=== PATIENT | male | born 1975 | race Caucasian/White ===

== ENCOUNTER 2019-08-19 18:01 | Emergency (ER) | payer MEDICAID, SELFPAY ==
[2019-08-19 18:25] VITALS: BP 140/96; PULSE 115; RESP 18; TEMP 36.8; O2SAT 100; BMI 31.9
--- NOTE | 2019-08-19 18:28 | HMH.EDUTC ---
[facility] [place] Clinical Impression: Exposure to STD, Genital warts Disposition: Home, Self-Care Condition on Discharge: Good Instructions: Trichomoniasis, DI for Trichomoniasis Additional Instructions: Drink plenty of fluids. Take the medications as directed. Follow up with your regular doctor. GO TO THE ER FOR ANY WORSENING SYMPTOMS Follow up with urology. I put in a referral, but you need to call and schedule yourself an appointment. Prescriptions: metroNIDAZOLE [Flagyl 500mg Tablet] 2,000 mg PO ONCE #1 tab Transmission Status: Received by [facility] Referrals: Provider,MD Danna [Primary Care Provider] - Brian Argueta MD [Staff Physician] - Time of Disposition: 18:32 Medical Decision Making - Medical Records Medical records reviewed: No: I reviewed the patient's medical records. - Davy Inquiry Pt receiving controlled substance: No Vital Signs: 08/19/19 18:25 08/19/19 18:42 Temperature 98.2 F 98.2 F Temperature Source Oral Oral Pulse Rate 115 H Pulse Rate [Right Brachial] 115 H Respiratory Rate 18 18 Blood Pressure 140/96 H Blood Pressure [Right Arm] 140/96 H Blood Pressure Mean [Right Arm] 110 Blood Pressure Source Automatic Cuff Blood Pressure Source [Right Arm] Automatic Cuff Blood Pressure Position Sitting Blood Pressure Position [Right Arm] Sitting 02 Sat by Pulse Oximetry 100 Oxygen Delivery Method Room Air Room Air - Lab Data Lab Results 08/19/19 18:31: Urine Color Citrus, Urine Appearance Cloudy, Urine pH 5.5, Ur Specific [place] 1.030, Urine Protein 1+, Urine Glucose (UA) Negative, Urine Ketones Negative, Urine Blood Negative, Urine Nitrate Negative, Urine Bilirubin 1+ A, Urine Urobilinogen 0.2, Ur Leukocyte Esterase Negative Orders (Tests/Meds): ORDERS Category Date Time Status Urine Culture Stat Micro 08/19/19 18:34 Results [facility] [place] - General Stated complaint: private issues Time Seen by Provider: 08/19/19 18:28 - History of Present Illness Provider Complaint: He believes that he has been exposed to trichamonas. And he believes he is getting genital warts. He would like to be treated for the trich and referred to a urologist. - Related Data Previous Rx's Medication Instructions Recorded metroNIDAZOLE [Flagyl 500mg 2,000 mg PO ONCE #1 tab 08/19/19 Tablet] Allergies Allergy/AdvReac Type Severity Reaction Status Date / Time codeine [CODEINE] Allergy Intermediate Verified 03/25/19 17:02 [facility] History - Hepatitis A Screen Attestation statement:: This patient has been screened for Hepatitis A risk factors. I have reviewed the patient's past medical history: Yes - Social History Smoking Status: Current every day smoker Tobacco Type: cigarettes # Packs/Day (cigarettes): 1 Alcohol Intake: never Substance Use Type: marijuana, methamphetamine, other Occupational Status: unemployed ROS Obtained: Yes All systems reviewed & no additional complaints - Constitutional Constitutional: Denies chills, Denies fever(s) - Respiratory Respiratory: No chest congestion, No cough - Genitourinary Male Genitourinary: Denies difficulty urinating - Musculoskeletal Musculoskeletal: Denies back pain Physical Exam - General General appearance: alert, in no apparent distress - Head Head exam: atraumatic, normocephalic, normal inspection - Eye Eye exam: Present: normal appearance, PERRL, EOMI - ENT ENT exam: Present: normal exam, normal oropharynx, mucous membranes moist, TM's normal bilaterally, normal external ear exam - Neck Neck exam: Present: normal inspection, full ROM, trachea midline. Absent: meningismus, lymphadenopathy - Chest Chest inspection: Present: normal inspection, symmetric chest wall rise. Absent: tenderness - Respiratory Respiratory exam: Present: normal lung sounds bilaterally. Absent: respiratory distress - Cardiovascular Cardiovascular exam: Present: regular r
[2019-08-19 18:37] LABS: Apearance,Urine Cloudy (Clear); Bilirubin,Urine 1+ (Negative); Blood, Urine Negative (Negative); Color,Urine Orange (Yellow); Glucose,Urine (UA) Negative (Negative); Ketones,Urine Negative (Negative); PH,Urine 5.5 (5.0-8.5); Protein,Urine 1+ (Negative); UTC Leukocyte Esterase,Urine Negative (Negative); UTC Nitrate,Urine Negative (Negative); Urobilinogen,Urine 0.2 EU/dl (0.2)
[2019-08-19 18:42] VITALS: BP 140/96; PULSE 115; RESP 18; TEMP 36.8; O2SAT 100
[2019-08-22 10:28] LABS: Neisseria gonorrhoeae, NAA Negative (Negative)
== END 2019-08-19 18:43 | disposition home or self-care (01) ==
PROVIDERS: Emergency Provider Nurse Practitioner Family
DX: Z20.2 Contact with and (suspected) exposure to infections with a predominantly sexual mode of transmission (principal); F17.210 Nicotine dependence, cigarettes, uncomplicated; Z88.6 Allergy status to analgesic agent
CPT/HCPCS: 81003; 87086; 87491; 87591; 99201

== ENCOUNTER → 2021-05-18 13:40 | Outpatient (CLI) | payer MEDICAID, SELFPAY | PROVIDERS: Visit Provider Nurse Practitioner | DX: U07.1 COVID-19 (principal) | CPT/HCPCS: C9803; U0003; U0005 ==

== ENCOUNTER 2021-06-12 08:13 | Emergency (ER) | payer MEDICAID, SELFPAY ==
[2021-06-12 08:13] VITALS: BP 124/106; PULSE 86; RESP 18; TEMP 36.8; O2SAT 99; BMI 23.6
[2021-06-12 08:21] VITALS: BP 124/106; PULSE 91; O2SAT 97
[2021-06-12 08:27] VITALS: BP 153/102; PULSE 88; O2SAT 98
[2021-06-12 08:30] VITALS: BP 148/88; PULSE 89; O2SAT 97
--- NOTE | 2021-06-12 08:37 | HMH.EDGENADL ---
ED Disposition Clinical Impression: Puncture wound of plantar aspect of foot Qualifiers: Encounter type: initial encounter Laterality: right Qualified Code(s): S91.331A - Puncture wound without foreign body, right foot, initial encounter Disposition: Home, Self-Care Condition on Discharge: Good Instructions: DI for Puncture Wound Additional Instructions: Clean wound with soap and water daily. Return to the emergency department if increasing pain, or development of redness, red streaks, fever, or pus drainage. Referrals: Provider,Referral, [Primary Care Provider] - - Critical Care Critical Care Time: No Attestation: On 06/12/21, the high probability of a clinically significant, sudden or life threatening deterioration of the following system(s) required my full and direct attention, intervention and personal management. The time I documented below is in addition to time spent performing reported procedures but includes the following listed in this critical care notation. Medical Decision Making - Davy Inquiry Pt receiving controlled substance: No Vital Signs: 06/12/21 08:13 06/12/21 08:21 06/12/21 08:27 Temperature 98.2 F Temperature Source Oral Pulse Rate 91 H 88 Pulse Rate [Right Radial] 86 Respiratory Rate 18 Blood Pressure 124/106 H 153/102 H Blood Pressure [Right Arm] 124/106 H Blood Pressure Mean [Right Arm] 112 Blood Pressure Source [Right Arm] Automatic Cuff Blood Pressure Position [Right Arm] Sitting 02 Sat by Pulse Oximetry 99 97 98 Oxygen Delivery Method Room Air Room Air Room Air 06/12/21 08:30 Temperature Temperature Source Pulse Rate 89 Pulse Rate [Right Radial] Respiratory Rate Blood Pressure 148/88 H Blood Pressure [Right Arm] Blood Pressure Mean [Right Arm] Blood Pressure Source [Right Arm] Blood Pressure Position [Right Arm] 02 Sat by Pulse Oximetry 97 Oxygen Delivery Method Room Air Orders (Tests/Meds): ED MEDICATIONS Discontinued Medications Generic Name Dose Route Start Last Admin Trade Name Freq PRN Reason Stop Dose Admin Tetanus/Diphtheria Toxoids 0.5 ml 06/12/21 08:29 06/12/21 08:39 Tetanus-Diphth Toxoid, Adult 0.5ml Syr IM 06/12/21 08:30 0.5 ml .ONCE ONE Administration Medical Decision Narrative: No suspicion of foreign body. Patient just requests a tetanus shot. General Adult HPI - General Chief complaint: Wound/Laceration Stated complaint: piece of wire thru foot Time Seen by Provider: 06/12/21 08:37 Mode of Arrival: Ambulatory Limitations: No Limitations Description of Symptoms (Recalled from ER Triage Doc. by RN): Pt states that he stepped on a piece of fencing wire yesterday and it went through the bottom of his tennis shoe, punturing his rt foot. Pt denies pain. States that he is not up to date on Tetanus vaccine. - History of Present Illness HPI narrative: States that he stepped on a piece of fencing wire yesterday and it went through his boot into his right foot. He is not sure where punctured his foot, somewhere in the forefoot and says it is sore to walk on. He says that he needs a tetanus shot, it has been greater than 10 years. He says he knows that it did not break anything and nothing broke off and there , just needs a tetanus shot. States he soaked it in Epsom salts and cleaned it, I have been through this before . States that every time he has had to get a tetanus shot is because he is stepped on a nail in the past. - Related Data Previous Rx's Medication Instructions Recorded metroNIDAZOLE [Flagyl 500mg 2,000 mg PO ONCE #1 tab 08/19/19 Tablet] Allergies Allergy/AdvReac Type Severity Reaction Status Date / Time codeine [CODEINE] Allergy Intermediate Verified 03/25/19 17:02 [facility] History - Hepatitis A Screen Drug use history?: No High risk sexual behaviors?: No History of sexually transmitted infection?: No Currently employed?: No Childcare worker?: No Do
[2021-06-12 08:51] VITALS: BP 148/88; PULSE 89; RESP 16; TEMP 36.9; O2SAT 98
== END 2021-06-12 08:53 | disposition home or self-care (01) ==
PROVIDERS: Emergency Provider Emergency Medicine
DX: S91.331A Puncture wound without foreign body, right foot, initial encounter (principal); W22.8XXA Striking against or struck by other objects, initial encounter; Y92.89 Other specified places as the place of occurrence of the external cause; Z23 Encounter for immunization
CPT/HCPCS: 90471; 90714; 99281

== ENCOUNTER 2021-10-16 21:43 | Emergency (ER) | payer MEDICAID, SELFPAY ==
[2021-10-16 21:33] VITALS: BP 123/84; PULSE 91; RESP 16; TEMP 36.6; O2SAT 98; BMI 22.8
[2021-10-16 22:52] LABS: Basophils # 0.2 K/mm3 (0-0.2); Basophils % 1.7 % (0.1-2.0); Eosinophils # 0.1 K/mm3 (0.0-0.4); Eosinophils % 1.5 % (0.1-12.0); Hematocrit 38.2 % (42.0-52.0); Hemoglobin 13.1 g/dL (14.1-18.0); Lymphocytes # 2.6 K/mm3 (0.7-4.5); Lymphocytes % 26.7 % (10-50); Mean Corpuscular HGB Conc 34.2 g/dL (31.8-35.4); Mean Corpuscular Hemoglobin 31.6 pg (27.0-31.2); Mean Corpuscular Volume 92.2 fl (80-94); Mean Platelet Volume 9.2 fl (7.4-10.4); Monocytes # 0.7 K/mm3 (0.1-1.0); Monocytes % 7.2 % (1.7-9.3); Neutrophils # 6.1 K/mm3 (1.8-7.8); Platelet Count 261 K/mm3 (142-424); Red Blood Count 4.15 M/mm3 (4.60-6.20); Red Cell Distribution Width 13.1 % (11.5-17.5); White Blood Count 9.6 K/mm3 (4.8-10.8)
--- NOTE | 2021-10-16 22:54 | HMH.EDMCLR ---
ED Disposition Clinical Impression: Medical clearance for incarceration, Amphetamine abuse Disposition: Home, Self-Care Condition on Discharge: Good Instructions: DI for Substance Use Disorder Additional Instructions: see pcp for follow up Referrals: Provider,Referral, [Primary Care Provider] - - Critical Care Critical Care Time: No Attestation: On 10/16/21, the high probability of a clinically significant, sudden or life threatening deterioration of the following system(s) required my full and direct attention, intervention and personal management. The time I documented below is in addition to time spent performing reported procedures but includes the following listed in this critical care notation. Medical Decision Making - Medical Records Medical records reviewed: Yes: I reviewed the patient's medical records. - Davy Inquiry Pt receiving controlled substance: No Vital Signs: 10/16/21 21:33 Temperature 97.8 F Temperature Source Oral Pulse Rate [Left] 91 H Respiratory Rate 16 Blood Pressure [Right Arm] 123/84 Blood Pressure Mean [Right Arm] 97 02 Sat by Pulse Oximetry 98 Oxygen Delivery Method Room Air - Lab Data Lab results reviewed: Yes: I reviewed the patient's lab results. Lab Results 10/16/21 21:45: WBC 9.6, RBC 4.15 L, Hgb 13.1 L, Hct 38.2 L, MCV 92.2, MCH 31.6 H, MCHC 34.2, RDW 13.1, Plt Count 261, MPV 9.2, Neut % (Auto) 63.0, Lymph % (Auto) 26.7, [place] % (Auto) 7.2, Eos % (Auto) 1.5, Baso % (Auto) 1.7, Neut # (Auto) 6.1, Lymph # (Auto) 2.6, [place] # (Auto) 0.7, Eos # (Auto) 0.1, Baso # (Auto) 0.2 10/16/21 21:45: Sodium 140, Potassium 3.9, Chloride 107, Carbon Dioxide 24, Anion Gap 12.9, BUN 31 H, Creatinine 1.80 H, Estimated Creat Clear 55, Estimated GFR 41 L, Est GFR ( Amer) 49 L, Glucose 92, Calcium 9.1, Total Bilirubin 0.3, AST 46, ALT 22, Alkaline Phosphatase 100, Total Protein 7.3, Albumin 4.0, Globulin 3.3 H, Albumin/Globulin Ratio 1.2 10/16/21 23:20: Urine Color Yellow, Urine Appearance Clear, Urine pH 5.5, Ur Specific [place] >= 1.030, Urine Protein Trace, Urine Glucose (UA) Negative, Urine Ketones Negative, Urine Blood Negative, Urine Nitrate Negative, Urine Bilirubin Negative, Urine Urobilinogen 0.2, Ur Leukocyte Esterase Negative, Urine WBC 5-10, Ur Squamous Epith Cells Occasional, Ur Renal Epithelial Cell Occasional, Amorphous Sediment Trace, Urine Mucus 4+ 10/16/21 23:20: Urine Opiates Screen Negative, Urine Methadone Screen Negative, Ur Barbituates Screen Negative, Ur Phencyclidine Scrn Negative, Ur Amphetamines Screen Positive H, U Benzodiazepines Scrn Negative, Urine Cocaine Screen Negative, U Marijuana (THC) Screen Positive H Result diagrams: 10/16/21 21:45 10/16/21 21:45 Orders (Tests/Meds): ED MEDICATIONS Generic Name Dose Route Start Last Admin Trade Name Freq PRN Reason Stop Dose Admin Sodium Chloride 1,000 mls @ 999 mls/hr 10/16/21 22:45 10/16/21 22:42 Sod Chlor 0.9% 1000ml Bag IV 10/16/21 23:45 999 mls/hr .Q1H1M CHIDI Administration Sodium Chloride 10 ml 10/16/21 22:41 Sodium Chloride 0.9% 10ml Flush Syringe IV 11/15/21 22:40 NEEDED PRN Maintain IV Site Medical Clearance HPI - General Chief complaint: Overdose Stated complaint: OD Time Seen by Provider: 10/16/21 22:54 Mode of Arrival: EMS Source of Information: Patient, EMS, Medical Record Limitations: No Limitations Description of Symptoms (Recalled from ER Triage Doc. by RN): pt found passed out in the truck pt stated he smoked week and is bipolar pt states to have had meth 3 days ago but none today - History of Present Illness HPI Narrative: hx of snorting meth - he reports last episode 3 days ago - reports has anxiety MD complaint: medical clearance requested Onset (ago): day(s) Reason for Medical Clearance: other (drug use ) Alleged Intoxication: Yes Traumatic Symptoms: denies traumatic injury Associated Symptoms: denies other symptoms Treatments Prior to A
[2021-10-16 22:58] LABS: Alanine Aminotransferase 22 U/L (12-78); Albumin/Globulin Ratio 1.2 (1.1-1.8); Alkaline Phosphatase 100 U/L (38-126); Anion Gap 12.9 mEq/L (5-15); Aspartate Amino Transferase 46 U/L (17-59); Bilirubin,Total 0.3 mg/dl (0.2-1.3); Blood Urea Nitrogen 31 mg/dl (9-20); Calcium 9.1 mg/dl (8.4-10.2); Carbon Dioxide 24 mmol/L (22.0-30.0); Chloride 107 mmol/L (98-107); Creatinine Clearance Estimated 55 mL/min (50-200); Estimated Glomerular Filt Rate 41 ml/min (>60); GFR (African American) 49 ML/MIN (>60); Globulin 3.3 g/dL (1.3-3.2); Glucose 92 mg/dl (74-100); Potassium 3.9 mmoL/L (3.5-5.1); Sodium 140 mmol/L (136-145); Total Protein,Serum 7.3 g/dl (6.3-8.2)
[2021-10-16 23:22] LABS: Microscopic, Urine URINE MICROSCOPIC (MICROSCOPIC)
[2021-10-16 23:23] LABS: Appearance,Urine CLEAR (Clear); Bilirubin,Urine Negative (Negative); Blood, Urine Negative (Negative); Color,Urine YELLOW (Yellow); Glucose,Urine (UA) Negative (Negative); Ketones,Urine Negative (Negative); Leukocyte Esterase,Urine Negative (Negative); Nitrate,Urine Negative (Negative); PH,Urine 5.5 (5.0-8.5); Protein,Urine TRACE (Negative); Specific Gravity, Urine >= 1.030 (1.005-1.030); Urobilinogen,Urine 0.2 EU/dl (0.2)
[2021-10-16 23:28] LABS: Renal Epithelial Cells,Urine Occasional #/lpf (0); Squamous Epithelial Cell,Urine Occasional #/hpf (0-5)
[2021-10-16 23:29] LABS: Amorphous Sediment,Urine Trace /lpf; Mucus,Urine 4+ /lpf
[2021-10-16 23:35] LABS: Barbiturates Screen,Urine Negative ng/ml (<200); Benzodiazepines Screen,Urine Negative ng/ml (<200)
[2021-10-16 23:36] LABS: Cannabinoid Screen,Urine Positive ng/ml (<50)
[2021-10-16 23:37] LABS: Cocaine Screen,Urine Negative ng/ml (<300)
[2021-10-16 23:38] LABS: Methadone Screen,Urine Negative ng/ml (<300); Opiate Screen,Urine Negative ng/ml (<300)
[2021-10-16 23:39] LABS: Phencyclidine Screen,Urine Negative ng/ml (<25)
[2021-10-16 23:48] LABS: Amphetamine/Metha Screen,Urine Positive ng/ml (<1000)
[2021-10-17 00:36] VITALS: BP 123/84; PULSE 89; RESP 18; TEMP 36.9; O2SAT 99
== END 2021-10-17 00:41 | disposition home or self-care (01) ==
PROVIDERS: Emergency Provider Emergency Medicine
DX: T43.621A Poisoning by amphetamines, accidental (unintentional), initial encounter (principal); R21 Rash and other nonspecific skin eruption; F41.9 Anxiety disorder, unspecified; F17.210 Nicotine dependence, cigarettes, uncomplicated; Z88.5 Allergy status to narcotic agent
CPT/HCPCS: 80053; 80305; 81001; 85025; 96360; 99284

== ENCOUNTER 2023-03-28 08:59 | Emergency (ER) | payer SELFPAY ==
[2023-03-28] VITALS (11 sets, daily range): BP systolic 90–124; BP diastolic 42–78; PULSE 64–84; RESP 16–20; TEMP 36.4–36.7; O2SAT 95–99; BMI 30.4
--- NOTE | 2023-03-28 09:03 | HMH.EDGENADL ---
Discharge Plan Disposition Patient Disposition: Home, Self-Care Chief Complaint: Overdose Prescriptions Prescriptions: No Action metronidazole 500 MG tablet 2,000 mg PO ONCE Qty: 1 0RF Referrals Follow up/Referrals: Low Fernandez DO [Primary Care Provider] - See instructions Activity Restrictions/Add. Instructions Additional Instructions/Restrictions: Please follow-up with your primary care provider and with psychiatric resources. Please return to the emergency department if you develop any new or worsening symptoms or become concerned for your health. Clinical Impressions Clinical Impression: Delirium Overdose Qualifiers: Encounter type: initial encounter Injury intent: undetermined intent Qualified Code(s): T50.904A - Poisoning by unspecified drugs, medicaments and biological substances, undetermined, initial encounter Discharge ED Provider: Doron Philippe Adult HPI <Doron Philippe MD - Last Filed: 03/28/23 17:11> General Chief complaint: Overdose Stated complaint: OD Time Seen by Provider: 03/28/23 09:02 History of Present Illness HPI narrative: The patient presents with a chief complaint of recent loss of her and possible overdose. She reports that her son found her unresponsive at 3 AM, and he was high on the kite. The patient states that her seemed fine when she went to bed the previous night. She was given a five-day supply of Naloxone by EMS. The patient is experiencing a new symptom of soreness in her neck. She denies having any fevers or chills. The patient has a past medical history of bipolar disorder but is not currently taking any medications for it. She admits to a possible overdose but denies using any recreational drugs this morning. The patient denies having any thoughts of hurting herself or others and does not believe that her actions this morning were an attempt to harm herself. The patient also mentions that her had expressed suicidal thoughts to his brother before his . There is no specific event or injury reported that may have triggered the neck soreness. No specific activities or positions have been identified that exacerbate or alleviate the pain. Related Data Previous Rx's Medication Instructions Recorded metronidazole 500 mg tablet 2,000 mg PO ONCE #1 tab 08/19/19 Allergies Allergy/AdvReac Type Severity Reaction Status Date / Time codeine [CODEINE] Allergy Intermediate Verified 03/25/19 17:02 [facility] <Doron Philippe MD - Last Filed: 03/28/23 17:11> [facility] Disclaimer: The information contained in this section may have been updated after the patient was seen, as this information can be updated by other users. Social History Smoking Status: Current every day smoker tobacco type: cigarettes packs per day: 1 alcohol intake: never substance use type: marijuana, methamphetamine and other current occupational status: other Travel in the last 8 weeks: None <Doron Philippe MD - Last Filed: 03/28/23 17:11> ROS Obtained: Yes Systems reviewed as appropriate & no additional complaints except as documented As per HPI Physical Exam <Doron Philippe MD - Last Filed: 03/28/23 17:11> General General appearance: alert and lethargic Head Head exam: atraumatic and normocephalic Eye Eye exam: Present normal appearance Neck Neck exam: Present normal inspection Chest Chest inspection: Present normal inspection and symmetric chest wall rise Respiratory Respiratory exam: Present normal lung sounds bilaterally; Absent respiratory distress Cardiovascular Cardiovascular exam: Present regular rate and normal rhythm Abdominal Exam Abdominal exam: Present soft Neurological Exam Neurological exam: Present alert and oriented X3 Psychiatric Psychiatric exam: Present normal affect and normal mood Expanded Psychiatric Exam Expanded psych exam: Present refuses to answer Skin Skin exam: Present warm and dry Medical Decision Making <Noe
--- NOTE | 2023-03-28 09:19 | PC.NURSE ---
pts clothes were soiled upon arrival; Jacey Garcia RN and I changed patient into a clean gown, and gave him warm blankets for comfort.
--- NOTE | 2023-03-28 10:04 | PC.NURSE ---
patient given a pillow for comfort, call anthony within reach
[2023-03-28 10:08] LABS: Basophils % 0.3 % (0.1-2.0); Eosinophils # 0.1 K/mm3 (0.0-0.4); Eosinophils % 0.5 % (0.1-12.0); Hematocrit 42.1 % (42.0-52.0); Hemoglobin 13.7 g/dL (14.1-18.0); Lymphocytes # 0.5 K/mm3 (0.7-4.5); Lymphocytes % 4.9 % (10-50); Mean Corpuscular HGB Conc 32.5 g/dL (31.8-35.4); Mean Corpuscular Hemoglobin 30.9 pg (27.0-31.2); Mean Platelet Volume 8.3 fl (7.4-10.4); Monocytes # 0.2 K/mm3 (0.1-1.0); Monocytes % 1.8 % (1.7-9.3); Neutrophils # 9.5 K/mm3 (1.8-7.8); Neutrophils % 92.5 % (37.0-80.0); Platelet Count 200 K/mm3 (142-424); Red Blood Count 4.44 M/mm3 (4.60-6.20); Red Cell Distribution Width 13.3 % (11.5-17.5); White Blood Count 10.2 K/mm3 (4.8-10.8)
[2023-03-28 10:09] LABS: Albumin Level 4.3 g/dl (3.5-5.0); Albumin/Globulin Ratio 1.4 (1.1-1.8); Alkaline Phosphatase 106 U/L (38-126); Bilirubin,Total 0.6 mg/dl (0.2-1.3); Chloride 98 mmol/L (98-107); Total Protein,Serum 7.3 g/dl (6.3-8.2)
[2023-03-28 10:10] LABS: MANUAL DIFFERENTIAL MANUAL DIFFERENTIAL (MANUAL DIFF)
--- NOTE | 2023-03-28 10:17 | ECG_ITS ---
APPROVED REPORT Exam: Resting ECG HR:75 bpm ECG Measurements Heart Rate 75 AXES VA 141 P 75 QRSd 90 QRS 58 QT 405 T 73 QTc 434 Conclusion SINUS RHYTHM NORMAL ECG UNCONFIRMED REPORT Electronically signed by : Krzysztof Koch MD 03/29/2023 18:27:08
[2023-03-28 10:20] LABS: Ethyl Alcohol < 10 mg/dl (0-10)
[2023-03-28 10:21] LABS: Amphetamine/Metha Screen,Urine Positive ng/ml (<1000); Barbiturates Screen,Urine Negative ng/ml (<200); Benzodiazepines Screen,Urine Negative ng/ml (<200); Cannabinoid Screen,Urine Negative ng/ml (<50); Cocaine Screen,Urine Negative ng/ml (<300); Methadone Screen,Urine Negative ng/ml (<300); Opiate Screen,Urine Negative ng/ml (<300); Phencyclidine Screen,Urine Negative ng/ml (<25)
[2023-03-28 10:22] LABS: Acetaminophen < 10 ug/ml (10-30); Alanine Aminotransferase 63 U/L (12-78); Aspartate Amino Transferase 114 U/L (17-59); Blood Urea Nitrogen 48 mg/dl (9-20); Calcium 8.2 mg/dl (8.4-10.2); Carbon Dioxide 19 mmol/L (22.0-30.0); Creatinine Clearance Estimated 82 mL/min (50-200); Estimated Glomerular Filt Rate 54 ml/min (>60); GFR (African American) 65 ML/MIN (>60); Glucose 129 mg/dl (74-100); Salicylate < 1.0 mg/dL (2.0-20.0)
[2023-03-28 10:29] LABS: Eosinophils % 1 % (0-3); Lymphocytes % 5 % (10-50); Monocytes % 1 % (2-9); Neutrophils % 93 % (42-76); Platelet Estimate Normal; RBC Morphology Normal; Total Cells Counted 100
[2023-03-28 10:40] LABS: Thyroid Stimulating Hormone 1.88 uIU/mL (0.465-4.68)
[2023-03-28 10:47] LABS: Sodium 135 mmol/L (136-145)
--- NOTE | 2023-03-28 11:00 | PC.NURSE ---
PT SLEEPING SOUNDLY, AWAKENS EASILY THEN BACK TO SLEEP. MOTHER AT BEDSIDE
[2023-03-28 11:32] LABS: Coronavirus 19, PCR Not Detected (NotDetected); Influenza A, PCR Not Detected (NotDetected); Influenza B, PCR Not Detected (NotDetected)
--- NOTE | 2023-03-28 11:41 | PC.NURSE ---
Visitor calling stating I'm his Maci and want to know how he is doing . I asked pt if it was ok to update her. He refused. Pt's daughter, Jermaine, is also at bedside and stated They haven't been together in years. Tell her Jermaine said no . I let Maci know that pt does not want to release any information at this time.
--- NOTE | 2023-03-28 11:42 | PC.NURSE ---
FAMILY UPDATED AT THIS TIME PER DR JERNIGAN. DAUGHTER AT BEDSIDE
--- NOTE | 2023-03-28 16:27 | PC.NURSE ---
INFO FAXED TO [facility]
--- NOTE | 2023-03-28 17:25 | PC.NURSE ---
Pt is talking to new Ariel Wayta via zoom
--- NOTE | 2023-03-28 17:53 | PC.NURSE ---
PT PROVIDED SUPPER AT THIS TIME
--- NOTE | 2023-03-28 18:05 | PC.NURSE ---
PT'S BROTHER MARICRUZ NOTIFIED PER PT REQUEST. WILL BE ON HIS WAY TO [place] MOTHER PT
--- NOTE | 2023-03-28 19:05 | PC.NURSE ---
SAFETY PLAN DISCUSSED WITH BROTHER, PLACED IN MEDICAL RECORDS
== END 2023-03-28 19:05 | disposition home or self-care (01) ==
PROVIDERS: Emergency Provider Emergency Medicine; PCP Internal Medicine
DX: T43.622A Poisoning by amphetamines, intentional self-harm, initial encounter (principal); F15.121 Other stimulant abuse with intoxication delirium; F17.210 Nicotine dependence, cigarettes, uncomplicated; Z63.4 Disappearance and death of family member
CPT/HCPCS: 80053; 80305; 80329; 84443; 85007; 85025; 87636; 93005; 99285